=== PATIENT | female | born 1985 | race Caucasian/White ===

== ENCOUNTER 2021-02-27 12:07 | Outpatient (RCR) | payer OTHER, SELFPAY ==
[2021-02-27] MEDS: RHO(D) IMMUNE GLOBULIN 300 MCG/2 ML SYRINGE IM (15:09)
== END 2021-05-28 23:59 | disposition home or self-care (01) ==
LOC: ANHLAB 12:07
PROVIDERS: Visit Provider Student in an Organized Health Care Education/Training Program
DX: Z29.13 Encounter for prophylactic Rho(D) immune globulin (principal); O36.0190 Maternal care for anti-D [Rh] antibodies, unspecified trimester, not applicable or unspecified; Z3A.00 Weeks of gestation of pregnancy not specified
CPT/HCPCS: 36415; 85461; 90384; 96372; J2790

== ENCOUNTER 2021-05-25 20:23 | Inpatient (IN) | payer OTHER, SELFPAY ==
[2021-05-26] VITALS (107 sets, daily range): BP systolic 81–133; BP diastolic 49–85; PULSE 64–122; RESP 16–18; TEMP 36.2–37.1; O2SAT 98–100; BMI 29.4
[2021-05-26 01:40] LABS: Basophils Percent Auto 0.4 % (0.2-1.2); Eosinophils Absolute Auto 0.1 K/mm3 (0-0.3); Hematocrit 31.6 % (37.0-47.0); Immature Granulocyte Absolute 0.03 K/mm3 (0.00-0.031); Immature Granulocyte Percent A 0.4 % (0-0.5); Immature Platelet Fraction Pct 18.4 % (0.9-11.2); Lymphocytes Absolute Auto 2.04 K/mm3 (0.9-3.2); Lymphocytes Percent Auto 28.7 % (18.3-44.2); Mean Corpuscular HGB Conc 31.6 g/dl (32-36); Mean Corpuscular Hemoglobin 27.5 pg (26-34); Mean Corpuscular Volume 87.1 fl (80-100); Mean Platelet Volume 13.5 fl (7.4-10.4); Monocytes Absolute Auto 0.6 K/mm3 (0.1-0.6); Monocytes Percent Auto 8.4 % (2.6-8.5); Neutrophils Absolute Auto 4.3 K/mm3 (1.3-6.7); Neutrophils Percent Auto 61.1 % (45.5-73.1); Platelet Count Result 168 k/mm3 (150-375); Red Blood Count 3.63 M/mm3 (4.2-5.4); Red Cell Distribution Width 14.3 % (11.5-14.5); White Blood Count 7.1 K/mm3 (4.5-10.0)
[2021-05-26] MEDS: LACTATED RINGERS 1,000 ML 125 ML IV CONT ×2 (01:43→06:26)
--- NOTE | 2021-05-26 02:06 | LDADM ---
This patient, Lien Avelar, was admitted to Labor/Delivery/Recovery 106 on 05/25/21 at 20:23. Plans for labor, pain management and were discussed with patient. Patient/family oriented to hospital policies and general routines including ID bracelet, bed and alarms, visiting hours, pain management, procedures, bathroom and other care routines, personal items, smoking policy, room service/diet and guest tray routines, infant security routines, and visiting hours. Patient/Family are encouraged to report perceived risks to care and to ask questions if they do not understand what they are told or what they should do. See OBIX for further documentation.
--- NOTE | 2021-05-26 03:17 | P.PNAN_ITS ---
Anes - Eval Pre Procedure Procedure: Labor epidural Date/Time: 05/26/21 03:17 Surgeon: Tiera Preop Diagnosis: pain during labor Pre Op Diagnosis: Contractions Patient Data Age: 35 Gender: F Height: 1.57 m Weight: 73 kg Last Vital Signs Pulse 87 05/26/21 03:16 BP 115/68 05/26/21 03:16 Pulse Ox 100 05/26/21 03:14 Allergies Allergy/AdvReac Type Severity Reaction Status Date / Time No Known Allergies Allergy Unknown Verified 05/08/21 14:36 Home Medications Medication Instructions Recorded Confirmed Type ergocalciferol (vitamin D2) 1,250 mcg PO WEEKLY 05/08/21 05/08/21 History [Vitamin D2] prenat.vits,jordin,vle-fpmw-mefxv 1 tablet PO DAILY 05/08/21 05/08/21 History [ #2] Laboratory Tests 05/26/21 05/26/21 01:29 01:29 WBC 7.1 K/mm3 K/mm3 (4.5-10.0) RBC 3.63 M/mm3 L M/mm3 (4.2-5.4) Hgb 10.0 g/dL L g/dL (12.0-15.0) Hct 31.6 % L % (37.0-47.0) MCV 87.1 fl fl (80-100) MCH 27.5 pg pg (26-34) MCHC 31.6 g/dl L g/dl (32-36) RDW 14.3 % % (11.5-14.5) Plt Count 168 k/mm3 k/mm3 (150-375) MPV 13.5 fl H fl (7.4-10.4) Immature Gran % (Auto) 0.4 % % (0-0.5) Neut % (Auto) 61.1 % % (45.5-73.1) Lymph % (Auto) 28.7 % % (18.3-44.2) [place] % (Auto) 8.4 % % (2.6-8.5) Eos % (Auto) 1.0 % % (0-4.4) Baso % (Auto) 0.4 % % (0.2-1.2) Lymph # (Auto) 2.04 K/mm3 K/mm3 (0.9-3.2) [place] # (Auto) 0.6 K/mm3 K/mm3 (0.1-0.6) Eos # (Auto) 0.1 K/mm3 K/mm3 (0-0.3) Baso # (Auto) 0.0 K/mm3 K/mm3 (0.0-0.1) Abs Immat Gran (auto) 0.03 K/mm3 K/mm3 (0.00-0.031) Absolute Neuts (auto) 4.3 K/mm3 K/mm3 (1.3-6.7) Absolute Nucleated RBC 0.0 K/mm3 K/mm3 (0.0-0.012) Nucleated RBC % 0.0 % % (0.0-0.2) % Immature Plt Fraction 18.4 % H % (0.9-11.2) RPR Pending Patient hx anesthesia problems: none Family hx anesthesia problems: none PMFSH Family History Family History (Updated 05/08/21 @ 14:44 by Shakeel Benitez RN) Sibling Mentally challenged Hearing loss Father Diabetes mellitus Hypertension Mother Acute myocardial infarction Hypertension Atrial fibrillation Social History Social History Smoking status: Never smoker Substance use: never Spiritual care concerns: No Exam Day of Procedure 05/26/21 03:17
--- NOTE | 2021-05-26 06:27 | PM.IMHP ---
H&P: HPI History of Present Illness Date/Time: 05/26/21 06:27 35-year-old 3 para 2 whose last menstrual period was August 18, 2020, EDC is 05/25/2021, presents at term in active labor. Her has been uncomplicated. She is Rh negative. She is negative for group B strep Chief Complaint: term in active labor Review of Systems Review of Systems: All systems reviewed & are unremarkable except as noted in HPI and below PMFSH Family History Family History Sibling Mentally challenged Hearing loss Father Diabetes mellitus Hypertension Mother Acute myocardial infarction Hypertension Atrial fibrillation Social History Social History Years smoked: 3 Smoking status: Former smoker Tobacco type: cigarettes Second hand tobacco smoke exposure: No Substance use: never Spiritual care concerns: No Meds Home Medications and Allergies Home Medications Medication Instructions Recorded Confirmed Type ergocalciferol (vitamin D2) 1,250 mcg PO WEEKLY 05/08/21 05/08/21 History [Vitamin D2] prenat.vits,jordin,uuy-nwft-evznt 1 tablet PO DAILY 05/08/21 05/08/21 History [ #2] Allergies Allergy/AdvReac Type Severity Reaction Status Date / Time No Known Allergies Allergy Unknown Verified 05/08/21 14:36 Vital Signs Vital Signs - 24 hr 05/26/21 01:15 05/26/21 02:15 05/26/21 02:16 Temperature 98.1 F Pulse Rate 74 66 Blood Pressure 123/81 112/78 Pulse Oximetry 05/26/21 02:31 05/26/21 02:39 05/26/21 02:40 Temperature Pulse Rate 73 83 Blood Pressure 122/81 122/81 Pulse Oximetry 100 05/26/21 02:41 05/26/21 02:43 05/26/21 02:44 Temperature Pulse Rate 82 83 Blood Pressure 123/80 127/85 Pulse Oximetry 100 05/26/21 02:46 05/26/21 02:49 05/26/21 02:51 Temperature Pulse Rate 78 77 Blood Pressure 127/77 116/83 Pulse Oximetry 100 05/26/21 02:54 05/26/21 02:55 05/26/21 02:58 Temperature Pulse Rate 77 74 Blood Pressure 127/82 127/82 Pulse Oximetry 100 05/26/21 02:59 05/26/21 03:01 05/26/21 03:03 Temperature 97.2 F L Pulse Rate 95 Blood Pressure 127/74 Pulse Oximetry 100 05/26/21 03:04 05/26/21 03:06 05/26/21 03:08 Temperature Pulse Rate 88 107 H Blood Pressure 133/78 113/75 Pulse Oximetry 100 05/26/21 03:09 05/26/21 03:11 05/26/21 03:13 Temperature Pulse Rate 87 92 Blood Pressure 117/71 115/70 Pulse Oximetry 99 05/26/21 03:14 05/26/21 03:16 05/26/21 03:18 Temperature Pulse Rate 87 82 Blood Pressure 115/68 115/73 Pulse Oximetry 100 05/26/21 03:19 05/26/21 03:21 05/26/21 03:23 Temperature Pulse Rate 72 122 H Blood Pressure 116/70 110/57 L Pulse Oximetry 98 05/26/21 03:24 05/26/21 03:26 05/26/21 03:29 Temperature Pulse Rate 93 Blood Pressure 117/78 Pulse Oximetry 100 99 05/26/21 03:31 05/26/21 03:34 05/26/21 03:39 Temperature Pulse Rate 67 Blood Pressure 111/66 Pulse Oximetry 99 100 05/26/21 03:44 05/26/21 03:46 05/26/21 03:49 Temperature Pulse Rate 83 Blood Pressure 86/49 L Pulse Oximetry 100 100 05/26/21 03:54 05/26/21 03:59 05/26/21 04:01 Temperature Pulse Rate 70 Blood Pressure 99/60 L Pulse Oximetry 100 99 05/26/21 04:04 05/26/21 04:09 05/26/21 04:14 Temperature Pulse Rate Blood Pressure Pulse Oximetry 100 100 100 05/26/21 04:16 05/26/21 04:19 05/26/21 04:24 Temperature Pulse Rate 72 Blood Pressure 92/49 L Pulse Oximetry 98 99 05/26/21 04:29 05/26/21 04:34 05/26/21 04:39 Temperature Pulse Rate Blood Pressure Pulse Oximetry 98 100 99 05/26/21 04:44 05/26/21 04:46 05/26/21 04:49 Temperature Pulse Rate 79 Blood Pressure 110/71 Pulse Oximetry 99 100 05/26/21 04:54 05/26/21 04:59 05/26/21 05:01 Temp
[2021-05-26] MEDS: LORATADINE 10 MG TABLET PO (07:10)
--- NOTE | 2021-05-26 08:43 | PM.OBPRVD ---
OB - Delivery Note Procedure Delivery date: 05/26/21 Intrapartal events: None Induction method: none Delivery augmentation: pitocin Delivery monitor: external FHT Route of delivery: Episiotomy description: None Laceration Description: None Specimen: No Quantitative Blood Loss (ml): 158 Anesthesia type: Epidural Disposition: floor Baby Date of : 05/26/21 Time of : 08:32 Weeks of gestation at delivery: 40 Infant gender: Male Weight (pounds): 7 Weight (ounces): 9 presentation: vertex position: Right Occiput Anterior Placenta delivery description: Spontaneous cord vessel description: 3 Vessels score one minute: 9 score five minutes: 9
[2021-05-26] MEDS: OXYTOCIN 30 UNITS/NS 500 ML 30 UNITS/500 ML BAG 125 UNITS IV CONT (09:12)
[2021-05-26] MEDS: BENZOCAINE 20% AER SPR (*SP) 56 GM CAN 1 SPRAY TOPICAL (10:34)
[2021-05-26] MEDS: IBUPROFEN 600 MG TABLET PO ×2 (10:34→19:35)
[2021-05-26] MEDS: WITCH HAZEL 40 PADS 1 PAD TOPICAL (10:34)
--- NOTE | 2021-05-26 11:27 | OBPPTRN ---
Patient transferred to post room # 285 via wheelchair. Support person present. Oriented to unit, room, information board, rooming in, admission packet and security measures. Patient verbalizes understanding.
[2021-05-26] MEDS: ACETAMINOPHEN 325 MG TABLET 650 MG PO (16:52)
[2021-05-27 03:38] VITALS: BP 108/69; PULSE 59; RESP 16; TEMP 36.6; O2SAT 98
[2021-05-27] MEDS: IBUPROFEN 600 MG TABLET PO ×2 (05:08→11:27)
[2021-05-27] MEDS: ACETAMINOPHEN 325 MG TABLET 650 MG PO (05:09)
[2021-05-27 05:22] LABS: Hematocrit 30.7 % (37.0-47.0); Hemoglobin 9.5 g/dL (12.0-15.0)
--- NOTE | 2021-05-27 06:09 | P.PNOB_ITS ---
OB - PN: Subj Subjective Date/time seen: 05/27/21 06:09 Patient comments: no complaints and pain well controlled baby status: doing well and nursing well OB - PN: Obj Data Labs CBC & Chem 7: 05/27/21 05:06 Labs: Laboratory Results - last 24 hr 05/26/21 05/27/21 01:29 05:06 Hgb 9.5 L Hct 30.7 L Blood Type A Negative Antibody Screen Positive Antibody Identification Passive Due to RH Imm Glob Antigen Identification Cancelled JENNIFER, IgG Interpret Negative JENNIFER, Poly Interpret Negative JENNIFER, Complement Interp Not Performed OB - PN A/P Plan day: 1 Plan: routine care, discharge home and follow up 6 weeks Time Spent With Patient Time: Total time spent is greater than 50% in coordination of care (as documented) at patient's floor/unit and/or counseling patient: Time with patient: less than 15 minutes Review of Systems Review of Systems: All systems reviewed & are unremarkable except as noted in HPI and below Exam Const: General: no acute distress Eyes: General: appearance normal, both eyes and all related structures Neck: Neck: supple and no JVD Thyroid: thyroid normal Resp: Effort & Inspection: normal respiratory effort Auscultation: clear to auscultation bilaterally Cardio: Rate: regular rate Rhythm: regular rhythm GI: Inspection: non-distended GI Palp: Yes Soft to palpation, No Tenderness to palpation present (GI) and No Guarding due to palpation present (GI) Auscu ltation: normal bowel sounds : General: Yes bladder normal to palpation External Female Exam: normal external appearance Speculum Exam - Vagina: normal vaginal discharge and No vaginal bleeding Speculum Exam - Cervix: nontender Bimanual exam- vagina & uterus: bladder normal to palpation and No Cervical tenderness present OB/external & speculum: No vaginal bleeding Skin: General skin exam: no rashes or lesions noted Extrem: General: normal to inspection and no edema Psych: Mental Status: mental status grossly normal Affect: normal affect
[2021-05-27] MEDS: MULTIVIT/MIN/PREN/FOL AC/IRON TABLET 1 TAB PO (07:44)
[2021-05-27] MEDS: DOCUSATE SODIUM 100 MG CAPSULE PO (07:44)
[2021-05-27] MEDS: TETANUS,DIPHTHERIA,AC PERTUSSIS ADULT (0.5 ML) BOOSTRIX IM (07:44)
[2021-05-27] MEDS: POLYSACCHARIDE IRON COMPLEX 150 MG CAPSULE PO (07:44)
[2021-05-27 08:00] VITALS: BP 109/73; PULSE 59; PULSE 62; RESP 16; TEMP 37.2; O2SAT 100; O2SAT 98
--- NOTE | 2021-05-27 10:00 | PC.NURSE ---
Mother called out for assist with feeding. Mother reports pain with latch and during the entire feeding. Reviewed feeding cues, frequencies, duration of feedings, feeding elimination flow sheet, and signs of adequate intake. Demonstrated stimulation techniques to wake for feeding. Mother allows infant to latch shallow with bottom lip rolled in, causing a lipstick appearance to nipple. Requested mother break latch. Assisted with to breast. Reviewed positioning/alignment in cross cradle, holding breast in ?U? hold and guided asymmetrical latch on. Infant able to latch correctly. nursed eagerly, with steady draws and frequent swallowing noted. Reviewed signs of a correct latch, effective nursing and suck swallow ratio. would slip to shallow latch, mother reports tenderness. Demonstrated how to adjust latch more deeply while feeding. Mother reports she can feel change in latch and has no tenderness. Nipple care reviewed of lanolin after feedings, warm compresses and gel pads as needed. Suggested mother stimulate while feeding to increase stimulate, increase intake and to assist with maintaining deep latch. Mother is planning on 24 hour discharge. Mother is feeding as required and waking infant to feed if needed. is waking to feed as required,l is currently meeting outcomes for weight, output, jaundice and feeding frequencies. Mother states she feels confident to continue effective at home. Reviewed transition to breast milk, signs of adequate intake, and engorgement/relief. Instructed to call ICP if intake/output less than required. Reviewed regular medications mother is taking. Information provided per Jeny. Reviewed community resources on the [facility] website and in the Mom/Baby guide. Information on outpatient services provided. Mother has no further questions at this time.
--- NOTE | 2021-05-27 10:42 | WPDANLDPN2 ---
Anes-Prog Note L&D Date/Time: 05/27/21 10:42 Comfortable throughout: labor and delivery Neuraxial method: epidural Epidural/Spinal procedure site: clean & non-tender Neuro status: Neuro function grossly intact. Cardiovascular status: normal Respiratory status: normal Airway patency: baseline Mental status: baseline Post-Op hydration status: normal Vital Signs: Last Vital Signs Temp 37.2 C 05/27/21 08:00 Pulse 59 L 05/27/21 08:00 Resp 16 05/27/21 08:00 BP 109/73 05/27/21 08:00 Pulse Ox 98 05/27/21 08:00 Pain score (VAS): 0/10. Patient resting in bed at time of assessment, appears comfortable. Post-procedural complaints: none Patient feedback: Patient satisfied with anesthetic care.
[2021-05-28 08:25] LABS: Rapid Plasma Reagin Non-Reactive (NonReactive)
[2021-05-28 11:43] VITALS: BP 111/76; PULSE 63; RESP 16; TEMP 36.8; O2SAT 99
--- NOTE | 2021-05-28 15:04 | PM.DS ---
DS: Admitting Diagnosis Admitting Diagnosis Admitting Diagnosis: term iup in labor DS: Summary Hospital Course Hospital Course: The patient was admitted in active labor. She underwent spontaneous vaginal delivery was unremarkable. Her hospital course was unremarkable. She remained afebrile. She was up, voiding flap difficulty, eating regular diet, ambulating, general without complaints. Routine discharge instructions were given. Discharge date was Time Spent with Patient Time attestation: Total time spent providing and/or coordinating discharge services: Exam Const: General: no acute distress Eyes: General: appearance normal, both eyes and all related structures Neck: Neck: supple and no JVD Thyroid: thyroid normal Resp: Effort & Inspection: normal respiratory effort Auscultation: clear to auscultation bilaterally Cardio: Rate: regular rate Rhythm: regular rhythm GI: Inspection: non-distended GI Palp: Yes Soft to palpation, No Tenderness to palpation present (GI) and No Guarding due to palpation present (GI) Auscultation: normal bowel sounds : General: Yes bladder normal to palpation External Female Exam: normal external appearance Speculum Exam - Vagina: normal vaginal discharge and No vaginal bleeding Speculum Exam - Cervix: nontender Bimanual exam- vagina & uterus: bladder normal to palpation and No Cervical tenderness present OB/external & speculum: No vaginal bleeding Skin: General skin exam: no rashes or lesions noted Extrem: General: normal to inspection and no edema Psych: Mental Status: mental status grossly normal Affect: normal affect DS: Data Data Completed and Pending Labs on day of discharge: Labs from last 24 hours 05/26/21 01:29 RPR Non-reactive Discharge Plan Discharge Attending physician on discharge: Gerald Dye Discharging Clinician: Gerald Dye Patient Disposition: Home, Self-Care Activity: may shower, no straining and pelvic rest Diet: heart healthy Wound Care Instructions: follow printed instructions Discharge Instructions: Education: Mom and Baby Guide Given to: Mother Follow-Up: Call your delivering provider's office for an appointment to be seen in: 6 Weeks Mom and baby [facility] come [facility] for the follow-up appointment. Appointment Date/Time: May 28, 2021 at 11:00 am What to expect at your follow-up visit: Blood Pressure Check Physical Assessment Call [phone] if you are unable to keep your appointment time. BREAST CARE: * Wear a snug supportive bra. * For engorgement discomfort: Breast Feeding: * Apply warm moist washcloths * Express milk as needed to relieve engorgement * Wear loose clothing * For sore nipples: * Identify correct latch-on * Apply warm moist washcloths before and after nursing * Air dry nipples after nursing * May apply Lansinoh cream to nipples EPISIOTOMY/PERINEAL CARE: * Until bleeding stops, use your sami bottle after urinating * Change your pad frequently throughout the day * You may take sitz baths several times a day (fill your bathtub with warm water and soak for 20 minutes.) Do NOT bathe in the water * No tub baths until seen by your physician - You may shower ACTIVITY: * Rest as much as possible. * Do not exercise or lift anything heavier than your baby (such as laundry or other children.) * Avoid stairs or driving as much as possible. * Do not put anything into the vagina. No douching, tampons, or sexual activity until seen by physician. NOTIFY PHYSICIAN IF YOU HAVE ANY QUESTIONS OR IF ANY OF THE FOLLOWING SYMPTOMS OCCUR: * If your vaginal area becomes red, swollen, or more painful than what you have experienced in the hospital. * If your vaginal bleeding becomes foul smelling. * If your vaginal bleeding becomes more heavy than a period or if your bleeding changes from pi
== END 2021-05-27 11:45 | disposition home or self-care (01) | DRG 807 ==
LOC: ANHLDR 05-26 01:39 → ANHOB2 05-26 11:30
PROVIDERS: Admitting Provider Obstetrics & Gynecology; Visit Provider Obstetrics & Gynecology
DX: O69.81X0 Labor and delivery complicated by cord around neck, without compression, not applicable or unspecified (principal); Z37.0 Single live birth; Z3A.40 40 weeks gestation of pregnancy; Z87.891 Personal history of nicotine dependence
CPT/HCPCS: 36415; 85014; 85018; 85025; 85055; 86592; 86850; 86880; 86900; 86901; 86902; 90715; A9270; J2590; J2795; J7120